=== PATIENT | male | born 1965 | race Caucasian/White ===

== ENCOUNTER 2020-09-30 22:31 | Emergency (ER) | payer OTHER ==
[~2020-09-30 22:31] MED LIST: ASPIRIN325 MG PO; CLEOCIN HCL300 MG PO; DIABETA 5 MG TAB5 MG PO; FOLIC ACID 1 MG1 MG PO; GLUCOPHAGE 500500 MG PO; IBUPROFEN800 MG PO; K-PHOS NEUTRAL250 MG PO; LANTUS SOL100 UNIT/1 SQ; MAG-OX 400 TAB400 MG PO; NEURONTIN 300300 MG PO; VITAMIN B-1100 M1 PO; [UNRECOGNIZED DRUG - OTHER] IV
[2020-10-01 01:21] LABS: HEMOGLOBIN 8.2 gm/dl (14.0-17.5); RED BLOOD COUNT 3.24 M/UL (4.20-5.50); WHITE BLOOD COUNT 14.2 K/UL (4.5-11.0)
[2020-10-01 01:32] LABS: BUN/CREATININE RATIO 25 (0-10)
== END 2020-10-01 23:00 | disposition short-term general hospital (02) ==
LOC: ER1 22:31
PROVIDERS: Physician Assistant
DX: A41.9 Sepsis, unspecified organism (principal); N39.0 Urinary tract infection, site not specified; J85.1 Abscess of lung with pneumonia; E11.65 Type 2 diabetes mellitus with hyperglycemia; D64.9 Anemia, unspecified; R91.8 Other nonspecific abnormal finding of lung field; I07.1 Rheumatic tricuspid insufficiency; I38 Endocarditis, valve unspecified; R62.7 Adult failure to thrive; Z98.890 Other specified postprocedural states
CPT/HCPCS: 36600; 71045; 80053; 81001; 82550; 82553; 82803; 83605; 83735; 83880; 84100; 84484; 85025; 85610; 85652; 85730; 86140; 87040; 87086; 93005; 96365; 96366; 96367; 99285; J2543; J3370; J7030; Q9967

== ENCOUNTER 2020-12-11 10:24 | Inpatient (IN) | payer OTHER ==
[~2020-12-11] VITALS: Ht 167.6 cm; Wt 55.3 kg
[2020-12-11 12:02] LABS: HEMOGLOBIN 10.6 gm/dl (14.0-17.5); WHITE BLOOD COUNT 7.8 K/UL (4.5-11.0)
[2020-12-11 12:26] LABS: BUN/CREATININE RATIO 29 (0-10)
[2020-12-11] MEDS ORDERED: GABAPENTIN300 MG PO (16:07)
[2020-12-11] MEDS ORDERED: ASPIRIN EC325 MG PO (16:07)
[2020-12-11] MEDS ORDERED: HUMALOG 10100 UNITS/ SC (16:08)
[2020-12-11] MEDS ORDERED: PAROXETINE HCL20 MG PO (16:08)
[2020-12-11 17:44] LABS: BUN/CREATININE RATIO 23 (0-10)
[2020-12-11 21:03] LABS: BUN/CREATININE RATIO 17 (0-10)
[2020-12-12 02:23] LABS: HEMOGLOBIN 10.6 gm/dl (14.0-17.5); RED BLOOD COUNT 4.04 M/UL (4.20-5.50)
[2020-12-12 02:40] LABS: BUN/CREATININE RATIO 13 (0-10)
[2020-12-13 04:58] LABS: HEMOGLOBIN 12.2 gm/dl (14.0-17.5); WHITE BLOOD COUNT 9.9 K/UL (4.5-11.0)
[2020-12-13 05:02] LABS: RED BLOOD COUNT 4.63 M/UL (4.20-5.50)
[2020-12-13 05:08] LABS: BUN/CREATININE RATIO 13 (0-10)
== END 2020-12-13 19:15 | disposition home health service (06) | DRG 208 ==
LOC: ER1 10:24 → CDU 14:22 → CCU 16:35
PROVIDERS: Emergency Medicine; Internal Medicine; Physician Assistant Medical; ADMIT Internal Medicine
PROC: 5A12012 Performance of Cardiac Output, Single, Manual (ICD-10-PCS; principal; 2020-12-11)
PROC: 5A1935Z Respiratory Ventilation, Less than 24 Consecutive Hours (ICD-10-PCS; 2020-12-11)
PROC: 0BH18EZ Insertion of Endotracheal Airway into Trachea, Via Natural or Artificial Opening Endoscopic (ICD-10-PCS; 2020-12-11)
PROC: 3E033XZ Introduction of Vasopressor into Peripheral Vein, Percutaneous Approach (ICD-10-PCS; 2020-12-11)
DX: J96.01 Acute respiratory failure with hypoxia (principal); I49.01 Ventricular fibrillation; G92 Toxic encephalopathy; E43 Unspecified severe protein-calorie malnutrition; R57.0 Cardiogenic shock; I46.8 Cardiac arrest due to other underlying condition; M48.54XA Collapsed vertebra, not elsewhere classified, thoracic region, initial encounter for fracture; T68.XXXA Hypothermia, initial encounter; F15.10 Other stimulant abuse, uncomplicated; I49.9 Cardiac arrhythmia, unspecified; E11.9 Type 2 diabetes mellitus without complications; F17.200 Nicotine dependence, unspecified, uncomplicated; J44.9 Chronic obstructive pulmonary disease, unspecified; D64.9 Anemia, unspecified; B19.20 Unspecified viral hepatitis C without hepatic coma; Z89.511 Acquired absence of right leg below knee; Z20.822 Contact with and (suspected) exposure to COVID-19; E87.6 Hypokalemia; E83.42 Hypomagnesemia; Z59.0 Homelessness; Z68.20 Body mass index [BMI] 20.0-20.9, adult
CPT/HCPCS: ECHO; 31500; 36415; 36600; 70450; 71045; 72125; 72128; 72131; 80048; 80053; 80307; 81001; 82140; 82550; 82553; 82803; 82962; 83605; 83735; 83880; 84100; 84132; 84484; 85025; 85027; 87040; 87086; 92950; 93306; 94002; 94003; 94760; 96374; 99285; C9113; G0480; J0171; J0461; J0696; J1650; J2250; J2704; J3475; J7030; J7070; U0002